=== PATIENT | female | born 1985 | race African-American/Black ===

== ENCOUNTER → 2017-06-15 | Outpatient (CLI) | payer OTHER ==
[~2017-06-15] MED LIST: ACET50TA PO; IBUP80TA PO; VITAPRTA PO
--- NOTE | 2017-06-15 15:51 | REP ---
BILATERAL MAMMOGRAM WITH DIAGNOSTIC MAMMOGRAM OF THE LEFT BREAST AND LEFT BREAST ULTRASOUND: Bilateral mammography is performed in the MLO and CC projections. Patient reports a palpable abnormality in the left axillary tail region and that area is marked on the skin with a triangular marker. Additional spot compression views of this area are performed. Breast parenchyma is dense bilaterally limiting the sensitivity of the mammogram. No definite mass or clustered microcalcifications are seen in either breast. Small axillary lymph nodes are seen bilaterally. There are a few small left axillary lymph nodes near the site of the reported palpable abnormality. Real-time sonographic evaluation of the left axillary tail region performed in the region of the reported palpable abnormality. A lymph node is seen at that location with a fatty echogenic hilum, measuring 1.6 x 0.5 x 1.2 cm. IMPRESSION: ACR 2 benign. Dense breast parenchyma limits the sensitivity of the mammogram. No definite suspicious mass is seen. At the site of the reported palpable abnormality both mammographically and sonographically there appears to be a benign lymph node. No other definite mass is seen mammographically or sonographically. Clinical correlation and followup recommended. This mammogram was interpreted with the aid of an FDA-approved computer-aided detection system. The patient states that she/he has not had a clinical breast exam in over a year. The patient letter being requested is M2. Signed by Guru Hayes MD 06/15/2017 04:52 P
== END ==
LOC: M RAD 14:08
PROVIDERS: ATTEND Physician Assistant Medical
DX: N63 Unspecified lump in breast (principal)
CPT/HCPCS: 76642; G0204